=== PATIENT | female | born 1955 | race Caucasian/White ===

== ENCOUNTER → 2016-06-24 | Outpatient (CLI) | payer OTHER ==
[~2016-06-24] MED LIST: ARICEPT 5 MG TAB5 MG PO; ATIVAN1 MG PO; CYMBALTA60 MG PO; DEPAKOTE 250MG250 MG PO; ENTOCORT EC3 MG PO; IBUPROFEN 600600 M1 PO; LIDODERM 5%1 PATC1 TOP; MAPAP500 MG PO; NAMENDA 10 MG T10 MG PO; OLANZAPINE10 MG PO; OLANZAPINE5 MG PO; PRILOSEC20 MG PO; REMERON15 MG PO; RIFAMPIN 300 M300 M1 PO; TEARS NATURALE1 EACH OPHTHALMIC; TRAMADOL 50 MG50 MG PO; TYLENOL EXTRA500 MG PO; VANCOMYCIN750 MG/250 IV; VITAMIN B122500 MCG PO; ZYPREXA 10 MG T10 MG PO; ZYPREXA10 MG/VIAL IM; ZYVOX600 MG PO
== END ==
LOC: RAD 13:15
DX: M25.572 Pain in left ankle and joints of left foot (principal); M25.522 Pain in left elbow; Z96.622 Presence of left artificial elbow joint

== ENCOUNTER 2016-07-03 10:27 | Emergency (ER) | payer OTHER ==
[~2016-07-03] VITALS: Ht 167.6 cm; Wt 70.8 kg
--- NOTE | ~2016-07-03 | EKG ---
[address] [place] [address] ELECTROCARDIOGRAM REPORT Name: MELA RAJPUT Room #: DEP [facility]#: [id number] Admission: 07/03/16 Attend Phys: Discharge: 07/03/16 Date of : 51 Report #: [id number] THIS REPORT FOR: //name// [facility] ED Test Date: 2016-07-03 Test Time: 10:46:04 Pat Name: MELA RAJPUT Department: Room: Gender: F Respiratory Therapy Assistant: MZOOK : 1955 Requested By: Kel Lopez Order Number: [id number] MD: Niko Vargas Measurements Intervals [place] Rate: 94 P: -17 FL: 153 QRS: -52 QRSD: 88 T: 25 QT: 355 QTc: 444 Interpretive Statements Sinus rhythm Inferior infarct, old Poor R wave progression Compared to ECG 05/04/2016 11:13:23 No significant change was found Electronically Signed On 07-04-2016 11:45:30 CDT by Niko Vargas [email or web address] <ELECTRONICALLY SIGNED> By: Niko Vargas MD, [facility] 07/04/16 1145 [id number] Niko Vargas MD, [facility] /EPI
[2016-07-03 11:11] LABS: URINE BILIRUBIN NEGATIVE (Negative); URINE BLOOD NEGATIVE (Negative); URINE COLOR YELLOW; URINE GLUCOSE-RANDOM* NEGATIVE (Negative); URINE KETONES NEGATIVE (Negative); URINE LEUKOCYTES-REFLEX NEGATIVE (Negative); URINE PROTEIN (DIPSTICK) NEGATIVE (Negative); URINE UROBILINOGEN 0.2 E.U./dl (0.2-1.0)
[2016-07-03 11:14] LABS: HEMATOCRIT 35.1 % (37.0-47.0); HEMOGLOBIN 11.9 gm/dL (12.0-15.0); MCV 88.2 fL (80.0-100.0); PLATELET COUNT 123 thou/uL (150-400); RBC 3.97 mil/uL (4.20-5.00); WBC 9.2 thou/uL (4.0-11.0)
[2016-07-03 11:23] LABS: MANUAL DIFF YES
[2016-07-03 11:44] LABS: ALBUMIN 2.5 g/dL (3.4-5.0); ALKALINE PHOSPHATASE 48 U/L (46-116); ANION GAP 8 mmol/L (7-16); BUN 9 mg/dL (7-18); CALCIUM 8.9 mg/dL (8.5-10.1); CHLORIDE 104 mmol/L (98-107); CK-MB MASS 0.5 ng/mL (<0.5-3.6); CO2 27 mmol/L (21-32); CREATININE 1.1 mg/dL (0.6-1.0); GLUCOSE 85 mg/dL (74-106); MAGNESIUM 1.7 mg/dL (1.8-2.4); NT-PRO BRAIN NAT PEPTIDE 230 pg/mL (<300); POTASSIUM 3.9 mmol/L (3.5-5.1); SGOT 48 U/L (15-37); SGPT 26 U/L (30-65); SODIUM 139 mmol/L (136-145); TOTAL BILIRUBIN 0.3 mg/dL (<0.1-1.0); TOTAL PROTEIN 7.5 g/dL (6.4-8.2); TROPONIN-I < 0.04 ng/mL (<0.04-0.07)
[2016-07-03 11:51] LABS: TOTAL CELL COUNT 100
== END 2016-07-03 13:52 | disposition home or self-care (01) ==
LOC: ER 10:27
PROVIDERS: Emergency Medicine
DX: F03.90 Unspecified dementia, unspecified severity, without behavioral disturbance, psychotic disturbance, mood disturbance, and anxiety (principal); R41.0 Disorientation, unspecified; F31.9 Bipolar disorder, unspecified; Z86.19 Personal history of other infectious and parasitic diseases; Z96.662 Presence of left artificial ankle joint; Z96.622 Presence of left artificial elbow joint

== ENCOUNTER → 2018-05-29 | Outpatient (CLI) | payer OTHER | LOC: RAD 01:37 | DX: Z12.31 Encounter for screening mammogram for malignant neoplasm of breast (principal) ==

== ENCOUNTER 2020-06-29 23:53 | Inpatient (IN) | payer OTHER ==
[~2020-06-29] VITALS: Ht 167.6 cm; Wt 59.1 kg
[~2020-06-29 23:53] MED LIST changes: +REMERON15 M2 PO; -REMERON15 MG PO
[2020-06-29 23:55] VITALS: BP 127/79
[2020-06-30] VITALS (7 sets, daily range): BP systolic 122–141; BP diastolic 59–81
[2020-06-30 00:26] LABS: ABSOLUTE NEUTROPHILS 3.7 thou/uL (1.4-8.2); BASOPHILS 1.2 % (0.0-2.0); EOSINOPHILS 2.3 % (0.0-3.0); HEMATOCRIT 27.8 % (37.0-47.0); MCH 24.5 pg (26.0-34.0); MCHC 32.4 g/dL (28.0-37.0); MCV 75.9 fL (80.0-100.0); PLATELET COUNT 330 thou/uL (150-400); POLYS 38.5 % (36.0-66.0); RBC 3.67 mil/uL (4.20-5.00); RDW 17.7 % (10.5-14.5); WBC 9.6 thou/uL (4.0-11.0)
[2020-06-30 00:45] LABS: ANION GAP 14 mmol/L (7-16); BUN 13 mg/dL (7-18); CALCIUM 7.7 mg/dL (8.5-10.1); CHLORIDE 96 mmol/L (98-107); CO2 20 mmol/L (21-32); CREATININE 1.5 mg/dL (0.6-1.0); GLUCOSE 107 mg/dL (74-106); SGOT 28 U/L (15-37); SGPT 16 U/L (30-65); SODIUM 130 mmol/L (136-145); TOTAL BILIRUBIN 0.2 mg/dL (0.2-1.0); TOTAL PROTEIN 6.6 g/dL (6.4-8.2); TROPONIN-I <0.06 ng/mL (<0.06)
[2020-06-30 00:45] LABS: URINE BILIRUBIN NEGATIVE (Negative); URINE BLOOD NEGATIVE (Negative); URINE CLARITY CLEAR; URINE COLOR YELLOW; URINE GLUCOSE-RANDOM* NEGATIVE (Negative); URINE KETONES NEGATIVE (Negative); URINE LEUKOCYTES-REFLEX TRACE (Negative); URINE NITRITE-REFLEX NEGATIVE (Negative); URINE PROTEIN (DIPSTICK) NEGATIVE (Negative); URINE SPECIFIC GRAVITY <= 1.005 (1.005-1.035); URINE UROBILINOGEN 0.2 E.U./dl (0.2-1.0)
[2020-06-30 00:46] LABS: POTASSIUM 2.4 mmol/L (3.5-5.1)
--- NOTE | 2020-06-30 04:09 | NUR ---
PT ADMITTED FROM ER FROM INDEPENDENT LIVING AT [facility] FOR ALTERED MENTAL STATUS AND LOW MAG, NS. POTASSIUM. SHE IS CONFUSED TO YEAR, TIME AND PLACE. SHE HAS DEMENTIA. SHE WAS EXPLAINED FALL PRECAUTIONS. AND CALL LIGHT. BED ALARM IS ON. POTASSIUM INFUSING LEFT FA WITH NS . NO S/S DISTRESS PRESENTLY. CARE PLAN INITIATED.
--- NOTE | 2020-06-30 07:33 | NUR ---
PT C/O NAUSEA. ZOFRAN GIVEN X1. BENADRYL GIVEN TO HELP HER SLEEP X1. NOTIFIED LIGHT OIL OPERATOR TO HAVE PT'S LABS DRAW AROUND 0730 OR 0800 DUE LYTES REPLACEMENT JUST COMPLETED. PT FORGETFUL AND NONCOMPLIANT WITH CALLING NS PRIOR TO GETTING OOB. BED ALARM IS ON. DAY SHIFT NOTIFIED.
[2020-06-30 08:04] LABS: CALCIUM 8.1 mg/dL (8.5-10.1); CREATININE 1.3 mg/dL (0.6-1.0); MAGNESIUM 2.1 mg/dL (1.8-2.4); POTASSIUM 3.1 mmol/L (3.5-5.1)
[2020-06-30] MEDS ORDERED: CYMBALTA30 MG PO (11:40)
[2020-06-30] MEDS ORDERED: LISINOPRIL5 MG PO (11:40)
[2020-06-30] MEDS ORDERED: NORVASC5 MG PO (11:40)
--- NOTE | 2020-06-30 15:04 | NUR ---
AWAITING FOLLOW UP WITH CASE MANAGEMENT REGARDING PT DC. PT UPDATED ON PLAN OF CARE.
--- NOTE | 2020-06-30 19:40 | NUR ---
PT CONFUSED. HAS DEMENTIA AND POSSIBLE ETOH W/D ACCORDING TO DAY SHIFT NURSE. BED ALARM ON. CHECKING PT FREQUENTLY. SIDE RILS UP X3. SR ON MONITOR. VSS. WILL CONTINUE TO MONITOR PT FOR CHANGES.
[2020-07-01 04:37] VITALS: BP 142/80
--- NOTE | 2020-07-01 05:13 | NUR ---
PT IS SLEEPING PRESENTLY. VSS AFEBRILE. SAT 100% ON RA. HRR . NSR ON MONITOR. NO S/S DT'S PRESENTLY. SHE STILL REMAINS CONFUSED AND ATTEMPTS TO GET OOB WITHOUT HELP. BED ALARM ON. SHE IS FORGETFUL.
[2020-07-01 05:20] LABS: HEMATOCRIT 27.9 % (37.0-47.0); HEMOGLOBIN 8.6 gm/dL (12.0-15.0); MCH 24.2 pg (26.0-34.0); MCV 78.2 fL (80.0-100.0); RBC 3.57 mil/uL (4.20-5.00); RDW 17.9 % (10.5-14.5); WBC 5.7 thou/uL (4.0-11.0)
[2020-07-01 05:35] LABS: CALCIUM 8.1 mg/dL (8.5-10.1)
--- NOTE | 2020-07-01 12:43 | NUR ---
CARE ASSUMED AT 0700, PT ALERT AND ORIENTED X1, CONFUSED AND DEMENTED. PT DENIES ANY NAUSEA AND VOMITTING. IMPULSIVE AT TIMES BUT REDIRECTABLE. FALL PRECAUTION IN PLACE. WILL CONTINUE TO MONITOR.
[2020-07-01 15:45] VITALS: BP 152/86
--- NOTE | 2020-07-01 16:36 | NUR ---
INITIAL ASSESSMENT: Received consult for discharge planning. MAX reviewed chart and spoke with nursing and attending physician. Pt was admitted from [facility] due to AMS/hypokalemia. Pt with hx of ETOH use. Pt is progressing towards goals for discharge. Discharge is anticipated for tomorrow. MAX met with pt at bedside. Pt is alert/orientated to self and place. Pt states she wants to go home. MAX explained that she is not ready for discharge today. MAX spoke with pt's brother, Donovan, via phone. Introduced role of MAX. Pt is retired from the [employer] and has been living in for several years. Pt's family live in and are supportive and involved in pt's care. MAX discussed discharge and recommendation for HH services. Pt's brother is agreeable. Options provided. No preference voiced. MAX explained that HH will assess pt in her apt and follow up with Donovan if they feel pt needs additional services or higher level of care. Pt's brother does not think pt has been drinking, as he does not know how she would be getting it. MAX faxed HH referral to [facility], who are onsite at [facility]. MAX notified HH liaison, Esthela, of new referral. MAX is following to assist as needed with discharge planning.
--- NOTE | 2020-07-01 17:42 | NUR ---
PT REMOVED IV. NEW IV ESTABLISHED IN LEFT UPPER ARM
[2020-07-01 19:37] VITALS: BP 159/71
--- NOTE | 2020-07-01 21:14 | NUR ---
UPON ARRIVAL TO SHIFT PT REPEATEDLY AND IMPULSIVELY GETTING OOB. PT PULLING ON IV. IV MED DISCONNECTED TO PREVENT FALL AND PULLING OUT IV. PT VERY UNSTEADY AND WALKING AROUND ROOM HOLDING ONTO FURNITURE. PT WALKED OUT TO NURSES STATION AND DOWN PORTILLO. . PT YELLING SHE WAS AT [facility] AND WHAT WERE ALL THESE PEOPLE DOING IN HER HOUSE. PT NOT ABLE TO BE REDIRECTED OR DISTRACTED. PROVIDER CALLED. AND PRN ORDER PROVIDED. PT APPROXIMATELY 30 MINUTES LATER ABLE TO BE REDIRECTED TO REST IN BED. PT REQUESTED HS MEDS. INITIALLY PT REFUSED MEDS STATING SHE WOULD TAKE THEM AT 2. PT REORIENTED TO TIME AND TOOK HS MEDS. BED ALARM ON.
--- NOTE | 2020-07-02 00:59 | NUR ---
PT AWAKENED TO USE RESTROOM. IMPULSIVELY OOB. ALARM SOUNDING. PT UNSTEADY, NOTED TREMORS AND DIAPHORETIC, HR 150. . IVF RESTARTED AND PRN PER CIWA PROVIDED. ALARM ON.
[2020-07-02 04:53] VITALS: BP 160/102
--- NOTE | 2020-07-02 05:06 | NUR ---
PT AWAKENED BY CORN SHUCKER. PT WANTED TO GET OOB TO USE RESTROOM BUT WAS ABLE TO WAIT FOR STAFF TO ASSIST. BP ELEVATED, PT HAS TREMORS, DIAPHORETIC, ANXOUS, AGITATED. PT ASKING ABOUT HER ROOM AND CAT IVY LOCATION. CIWA SCORE 9 PRN PROVIDED.
[2020-07-02 05:18] LABS: HEMATOCRIT 24.4 % (37.0-47.0); HEMOGLOBIN 7.7 gm/dL (12.0-15.0); MCH 24.7 pg (26.0-34.0); MCHC 31.7 g/dL (28.0-37.0); MCV 77.9 fL (80.0-100.0); RBC 3.13 mil/uL (4.20-5.00); RDW 18.1 % (10.5-14.5); WBC 4.8 thou/uL (4.0-11.0)
[2020-07-02 05:38] LABS: CALCIUM 8.1 mg/dL (8.5-10.1); MAGNESIUM 1.6 mg/dL (1.8-2.4); POTASSIUM 4.4 mmol/L (3.5-5.1)
[2020-07-02 07:15] VITALS: BP 146/104
[2020-07-02 08:30] VITALS: BP 166/93
[2020-07-02 14:32] LABS: AMP/METHAMP Negative (Negative); BARBITURATES Negative (Negative); BENZODIAZEPINES Negative (Negative); COCAINE Negative (Negative); METHADONE Negative (Negative); OPIATES Negative (Negative); PCP Negative (Negative)
--- NOTE | 2020-07-02 15:01 | NUR ---
MAX reviewed chart and spoke with nursing and attending physician. Pt is progressing towards goals for discharge. Discharge back to [facility] with [facility] is anticipated for tomorrow. MAX spoke with Esthela at [facility] , who states they are able to accept pt on service. MAX spoke with pt's brother, Donovan, via phone to provide update. Donovan is aware and agreeable with . Pt currently in ETOH withdrawal protocol. No alcohol level ordered upon admission. MAX placed call to [facility] and spoke with Debby to notify of pt's discharge. Debby requests pt's clinical/therapy info to be faxed for review. MAX faxed requested info. [facility] is able to provide transportation tomorrow. MAX is following to assist as needed with discharge planning. KNAPP LENA-- [facility]--
[2020-07-02 15:06] VITALS: BP 166/93
--- NOTE | 2020-07-02 17:34 | NUR ---
RN ASSUMED PT'S CARE AT 0700AM, PT KNOWS HER NAME AND DAY, BUT PT IS IMPULSIVE, SHE GETS OUT OF HER BED BY HER SELF AND PUT OUT HER PIV 2 TIMES , SHE IS HIGH FALL RISK, RN HAS CALLED TO REPORT, PT HAS ATIVAN 2MG IV Q2-3 HR PER CIWA ASSESSMENT SCORES 10-12, BUT DONOT WORK WELL, NEW ORDER BOTH WRIST SOFT RESTRAINTS APPLY AT 1700PM, PT'S VS ARE STABLE BY THIS TIME, RN HAS UPDATED PT'S INFORMATION TO PT'S BROTHER.WE WILL KEEP EYE ON THE PT.
[2020-07-02 20:03] VITALS: BP 188/116
[2020-07-03 04:29] VITALS: BP 137/91
[2020-07-03 05:09] LABS: HEMATOCRIT 27.4 % (37.0-47.0); HEMOGLOBIN 8.5 gm/dL (12.0-15.0); MCH 24.2 pg (26.0-34.0); MCV 77.9 fL (80.0-100.0); RBC 3.52 mil/uL (4.20-5.00); WBC 6.3 thou/uL (4.0-11.0)
[2020-07-03 05:43] LABS: CALCIUM 8.7 mg/dL (8.5-10.1); MAGNESIUM 1.7 mg/dL (1.8-2.4); TOTAL BILIRUBIN 0.3 mg/dL (0.2-1.0); TOTAL PROTEIN 6.7 g/dL (6.4-8.2)
--- NOTE | 2020-07-03 06:21 | NUR ---
PT STILL VERY IMPULSIVE WITH LORAZEPAM GIVEN. PT HR IN 120-130 AND VERY RESTLESS. RECEIVED ORDERS FOR 1X HALIDOL AND PT FINALLY GOT SOME REST AND HR WENT BELOW 100. RESTRAINTS STILL IN USE. PT DISLODGED IV IN RIGHT HAND. REPLACED WITH 22GA IN LEFT UNDERSIDE OF FOREARM. FOLLOWING POC.
[2020-07-03 07:28] VITALS: BP 150/107
--- NOTE | 2020-07-03 13:43 | NUR ---
Per phys patient would benefit from post acute care. Patient out of restraints since 10:00 this am. Spoke with Brother who is currently out of town. Discussed post acute care. Son questioning if patient was consuming ETOH again. He reports [facility] at [facility]. Due to Covid he has not been able to visit with patient. Brother with no prefence reports she has been at [facility] in past. Plan referral to [facility] facility. Requested COVID test. Requested [facility] call brother for medical update. Brother concerned patient has cat at apt. he plans to call [facility]. SP with Debby at [facility] to alert discussion of post acute care. Debby to f/u regarding care of cat.
--- NOTE | 2020-07-03 13:54 | NUR ---
FAXED SNF REFERRAL TO [facility]. WILL CONFIRM WITH HUMZA/LIAISON IF SHE RECEIVED DOCUMENTS AND BED AVAILABILITY. [facility] P [phone]; FAX [phone]
[2020-07-03 15:36] VITALS: BP 158/106
--- NOTE | 2020-07-03 18:19 | NUR ---
RN ASSUMED PT'S CARE AT 0700AM, PT KNOWS HER NAME , BUT PT IS CONFUSED AND SHE CANNOT FOLLOW COMMANDS, PT 'S AGITATION AND I MPULSIVE CAN CONTROL MOST OF TIME, SO PT'S SOFT RESTRAINTS STOPPED AT 1000AM, PT 'S CIWA ASSESSMENT SHOWS 10-11, PT IS HIGH FALL RISK, PT NEEDS HELP MEALS AND BSC. RN HAS COVID TEST DONE ABOUT 1330PM.
[2020-07-03 19:21] VITALS: BP 138/97
[2020-07-04 04:47] VITALS: BP 144/94
--- NOTE | 2020-07-04 05:50 | NUR ---
PROGRESS PT SEDATED BUT AROUSABLE. CALM, PLEASANT, AND COOPERATIVE. VSS TELEMETRY INTACT READING ST WITH RATES IN THE 90'S TO LOW 100'S. PT WOKE FOR REASSESSMENT AND MEDS BUT SLEPT UNTIL AM VOIDED X1 NO EPISODES OF INCONTINENCE. ONLY TRIED TO GET UP ONCE ON HER OWN. POOR INTAKE NOTED DINNER TRAY WAS UNTOUCHED, PT TOOK A FEW SIPS OF ORANGE JUICE AND SOME SODA BUT REFUSED A SNACK. POSSIBLE DISCHARGE TO SNF TODAY.
[2020-07-04 07:11] VITALS: BP 151/92
--- NOTE | 2020-07-04 12:17 | NUR ---
MAX reviewed chart and spoke with nursing and attending physician. Pt has remained out of restraints since yesterday morning around 1000. Pt's COVID test is negative. MAX faxed clinical updates and [facility] test results [facility] for [facility]. Notified Tamika liaison. Clinical team reviewing referral. MAX left voice message for pt's brother, Donovan, to provide update. Pt is ready for discharge. MAX is following to assist as needed with discharge planning.
[2020-07-04] MEDS ORDERED: VITAMIN B-1100 M2 PO (13:20)
[2020-07-04] MEDS ORDERED: MAGNESIUM400 MG PO (13:20)
[2020-07-04] MEDS ORDERED: DIAZEPAM 5 MG5 M1 PO (13:20)
[2020-07-04] MEDS ORDERED: PEPCID20 MG PO (13:20)
[2020-07-04] MEDS ORDERED: PRENATAL PO (13:20)
[2020-07-04] MEDS ORDERED: SEROQUEL 25 MG25 M1 PO (13:20)
[2020-07-04 15:19] VITALS: BP 137/93
--- NOTE | 2020-07-04 18:45 | NUR ---
ASSUMED PATIENT CARE AT 0700. ALERT. VERY GOOD APPETITE. UPDATE WITH PATIENTS SISTER. SISTER CONCERNNED PATIENT HAS BLEEDING ISSUES THAT RN DIDNT SEE ANY BLEEDING IN THREE DAYS HG 12.8. NOTIFIED DR FREEMAN UPDATE TO SISTER. PROGRESSING TOWARDS POC GOALS.
--- NOTE | 2020-07-04 18:50 | NUR ---
ASSUMED PATIENT CARE AT 0700. ALERT. CONFUSED AND IMPULSIVE. CIW X8. MEDS GIVEN FOR ANXIOUS. SLOWLY TOWARDS POC GOALS.
[2020-07-04 22:01] VITALS: BP 151/96
[2020-07-04 23:00] VITALS: BP 151/96
--- NOTE | 2020-07-05 01:15 | NUR ---
FALL PT BEING VERY IMPULSIVE THIS EVENING. FREQUENTLY GETTING OUT OF BED AND SETTING OFF THE BED ALARM. PT GOT OOB AT 2155 TO GO TO BATHROOM VERY IMPATIENT UNABLE TO GET GAIT BELT ON. I ESCORTED HER TO BATHROOM SHE HAD A STEADY GAIT. PT SAT ON TOLIET AND LEANED TO THE LEFT AND SHE SLIPPED OFF THE TOLIET SEAT ONTO THE FLOOR. DENIES INJURY OR PAIN VSS. MATT WILLINGHAM NOTIFIED NO NEW ORDERS RECEIVED. RAE RAJPUT PT'S BROTHER CONTACTED VIA PHONE AND NOTIFIED OF FALL. POST FALL ASSESSMENT COMPLETED, CARE PLAN UPDATED, VERGE REPORT AND HUDDLE FORM COMPLETED WITH ASSISTANCE OF GEOLOGICAL AIDE MARY JANE VARMA.
[2020-07-05 07:56] VITALS: BP 137/82
== END 2020-07-05 11:16 | DRG 640 ==
LOC: ER 23:53 → EROBS 06-30 01:33 → 3W 06-30 01:33
PROVIDERS: Emergency Medicine; Internal Medicine; Nurse Practitioner; ADMIT Hospitalist; ATTEND Hospitalist
DX: E87.6 Hypokalemia (principal); G93.41 Metabolic encephalopathy; F10.139 Alcohol abuse with withdrawal, unspecified; E87.1 Hypo-osmolality and hyponatremia; E83.42 Hypomagnesemia; F31.9 Bipolar disorder, unspecified; D64.9 Anemia, unspecified; B19.20 Unspecified viral hepatitis C without hepatic coma; Y90.9 Presence of alcohol in blood, level not specified; F03.90 Unspecified dementia, unspecified severity, without behavioral disturbance, psychotic disturbance, mood disturbance, and anxiety; R07.89 Other chest pain; Z96.662 Presence of left artificial ankle joint; Z96.622 Presence of left artificial elbow joint; Z79.899 Other long term (current) drug therapy; Z87.891 Personal history of nicotine dependence; Z20.822 Contact with and (suspected) exposure to COVID-19
CPT/HCPCS: 10879

== ENCOUNTER 2020-10-23 16:48 | Inpatient (IN) | payer OTHER ==
[~2020-10-23] VITALS: Ht 167.6 cm; Wt 54.4 kg
[~2020-10-23 16:48] MED LIST changes: +CYMBALTA30 MG PO; +DIAZEPAM 5 MG5 M1 PO; +LISINOPRIL5 MG PO; +MAGNESIUM400 MG PO; +NORVASC5 MG PO; +PEPCID20 MG PO; +PRENATAL PO; +SEROQUEL 25 MG25 M1 PO; +VITAMIN B-1100 M2 PO
[2020-10-23 17:08] VITALS: BP 131/72
[2020-10-23 18:20] LABS: ANION GAP 17 mmol/L (7-16); BUN 13 mg/dL (7-18); CALCIUM 9.2 mg/dL (8.5-10.1); CHLORIDE 95 mmol/L (98-107); CO2 18 mmol/L (21-32); CREATININE 1.5 mg/dL (0.6-1.0); GLUCOSE 116 mg/dL (74-106); POTASSIUM 3.3 mmol/L (3.5-5.1); SODIUM 130 mmol/L (136-145)
[2020-10-23 18:30] LABS: ALBUMIN 3.1 g/dL (3.4-5.0); SGOT 57 U/L (15-37); SGPT 31 U/L (14-59); TOTAL BILIRUBIN 0.4 mg/dL (0.2-1.0); TOTAL PROTEIN 7.5 g/dL (6.4-8.2); TROPONIN-I <0.06 ng/mL (<0.06)
[2020-10-23 18:47] LABS: HEMATOCRIT 36.3 % (37.0-47.0); HEMOGLOBIN 11.5 gm/dL (12.0-15.0); MCH 26.2 pg (26.0-34.0); MCHC 31.8 g/dL (28.0-37.0); MCV 82.6 fL (80.0-100.0); PLATELET COUNT 627 thou/uL (150-400); RBC 4.39 mil/uL (4.20-5.00); RDW 27.2 % (10.5-14.5); WBC 13.8 thou/uL (4.0-11.0)
[2020-10-23 19:58] LABS: ABSOLUTE NEUTROPHILS 10.6 thou/uL (1.4-8.2)
[2020-10-23 19:59] LABS: ANISOCYTOSIS 3+
[2020-10-23 23:25] LABS: URINE BILIRUBIN NEGATIVE (Negative); URINE BLOOD NEGATIVE (Negative); URINE CLARITY CLEAR; URINE COLOR YELLOW; URINE GLUCOSE-RANDOM* NEGATIVE (Negative); URINE KETONES NEGATIVE (Negative); URINE NITRITE-REFLEX NEGATIVE (Negative); URINE PROTEIN (DIPSTICK) NEGATIVE (Negative); URINE SPECIFIC GRAVITY <= 1.005 (1.005-1.035); URINE UROBILINOGEN 0.2 E.U./dl (0.2-1.0)
[2020-10-23 23:26] LABS: URINE LEUKOCYTES-REFLEX 1+ (Negative)
[2020-10-24 00:06] LABS: CASTS None Seen /LPF (None Seen); CRYSTALS None Seen /LPF (None Seen); MUCUS 0-3 Light strn/LPF (None Seen); SQUAMOUS 0-3 Few /LPF (0-3); URINE RBC 1-2 Rare /HPF (NONE SEEN); URINE WBC-REFLEX 6-15 Few /HPF (0-5)
[2020-10-24 02:07] VITALS: BP 109/62; BP 131/82
--- NOTE | 2020-10-24 05:34 | NUR ---
new admission for dizziness and fall on her apartment. patient aox3 confused and forgetful. no episode of synopy or dizzyness this shift. patient contient this shift. pain controlled this shift. fall precaution in place. patient in bed asleep at this time breathing regular and unlaboured.
[2020-10-24 06:12] LABS: HEMATOCRIT 32.3 % (37.0-47.0); HEMOGLOBIN 10.3 gm/dL (12.0-15.0); MCH 26.3 pg (26.0-34.0); MCHC 31.9 g/dL (28.0-37.0); MCV 82.3 fL (80.0-100.0); RBC 3.93 mil/uL (4.20-5.00); RDW 26.7 % (10.5-14.5); WBC 11.4 thou/uL (4.0-11.0)
[2020-10-24 06:27] LABS: CALCIUM 8.2 mg/dL (8.5-10.1); POTASSIUM 3.3 mmol/L (3.5-5.1)
--- NOTE | 2020-10-24 07:18 | EKG ---
[address] [place] [address] ELECTROCARDIOGRAM REPORT Name: MELA RAJPUT Room #: 461-P ADM IN ..#: [id number] Admission: 10/24/20 Attend Phys: Prem Haji MD Discharge: Date of : 51 Report #: [id number] [facility] ED Test Date: 2020-10-23 Test Time: 18:13:33 Pat Name: MELA RAJPUT Department: Room: 46 Gender: F Pst Supervisor: tessa : 1955 Requested By: Willam Van Order Number: [id number] MD: Isak Perez Measurements Intervals [place] Rate: 84 P: 33 MI: 139 QRS: -60 QRSD: 93 T: 4 QT: 363 QTc: 430 Interpretive Statements Sinus rhythm Probable left atrial enlargement Anterolateral infarct, old Compared to ECG 07/03/2016 10:46:04 Poor R-wave progression no longer present Myocardial infarct finding still present Electronically Signed On 10-24-2020 7:18:07 CDT by Isak Perez [email or web address] <ELECTRONICALLY SIGNED> By: Isak Perez MD, [facility] 10/24/20717 12 12 Isak Perez MD, [facility] /EPI
--- NOTE | 2020-10-24 08:30 | 2DMMODE ---
[facility] [place] [address] 2 D/M-MODE ECHOCARDIOGRAM Name: MELA RAJPUT Room #: 461-P ADM IN ..#: [id number] Admission: 10/24/20 Attend Phys: Prem Haji MD Discharge: Date of : 51 Report #: [id number] THIS REPORT FOR: cc: ADAIR - Alba family physician/PCP ADAIR - [facility] family physician/PCP Isak Perez MD [facility] ~ APPROVED REPORT Study performed: 10/24/2020 07:51:36 EXAM: Comprehensive 2D, Doppler, and color-flow Echocardiogram Patient Location: Bedside Room #: 461 Status: routine BSA: 1.61 HR: 85 bpm BP: 109/62 mmHg Rhythm: NSR Other Information Study Quality: Adequate Indications Syncope. 2D Dimensions RVDd: 27.65 mm IVSd: 10.13 (7-11mm) LVOT Diam: 19.85 (18-24mm) LVDd: 45.50 mm PWd: 8.80 (7-11mm) Ascending Ao: 31.39 (22-36mm) LVDs: 29.36 (25-40mm) Left Atrium: 31.14 (27-40mm) Aortic Root: 31.74 mm Volumes Left Atrial Volume (Systole) Single Plane 4CH: 29.39 mL Single Plane 2CH: 31.24 mL LA ESV Index: 20.00 mL/m2 Aortic Valve AoV Peak Zac.: 1.80 m/s AO Peak Gr.: 12.90 mmHg LVOT Max P.99 mmHg LVOT Max V: 1.50 m/s URIEL Vmax: 2.58 cm2 [facility] [address] [address] 2 D/M-MODE ECHOCARDIOGRAM Name: MELA RAJPUT Room #: 461-P [facility] IN [facility]#: [id number] Admission: 10/24/20 Attend Phys: Prem Haji MD Discharge: Date of : 51 Report #: [id number] Mitral Valve E/A Ratio: 0.7 MV Decel. Time: 259.11 ms MV E Max Zac.: 0.68 m/s MV A Zac.: 0.91 m/s MV PHT: 75.14 ms IVRT: 62.28 ms Pulmonary Valve PV Peak Zac.: 0.89 m/s PV Peak Gr.: 3.13 mmHg Pulmonary Vein P Vein S: 0.85 m/s P Vein A: 0.37 m/s P Vein D: 0.46 m/s P Vein A Dur.: 90.0 msec P Vein S/D Ratio: 1.85 Tricuspid Valve TR Peak Zac.: 2.57 m/s RAP Estimate: 5.00 mmHg TR Peak Gr.: 26.34 mmHg PA Pressure: 31.00 mmHg Left Ventricle The left ventricle is normal size. There is normal LV segmental wall motion. Mild basal septal hypertrophy is present. Left ventricular systolic function is normal. LVEF is 60-65%. Mild diastolic dysfunction is present (impaired relaxation pattern). Right Ventricle The right ventricle is normal size. The right ventricular systolic function is normal. Atria The left atrium size is normal. The right atrium size is normal. Aortic Valve Aortic valve is trileaflet; mildly thickened and calcified. No aortic regurgitation is present. There is no aortic valvular stenosis. Mitral Valve The mitral valve is normal in structure. Mild mitral annular calcification. There is no mitral valve regurgitation noted. No evidence of mitral valve stenosis. [facility] [address] [place] [address] 2 D/M-MODE ECHOCARDIOGRAM Name: MELA RAJPUT Room #: 461-P [facility] IN ..#: [id number] Admission: 10/24/20 Attend Phys: Prem Haji MD Discharge: Date of : 51 Report #: [id number] Tricuspid Valve The tricuspid valve is normal in structure. Trace to mild tricuspid regurgitation. Estimated PAP is 31mmHg. Pulmonic Valve The pulmonary valve is normal in structure. Trace pulmonic regurgitation. Great Vessels The aortic root is normal in size. The ascending aorta is normal in size. IVC is normal in size and collapses >50% with inspiration. Pericardium There is no pericardial effusion. <Conclusion> Normal left ventricular size with mild basal hypertrophy Ejection fraction 6065 % Normal right ventricular size/function Normal atrial size Color-flow Doppler study was performed of the aortic/mitral/tricuspid/pulmonary valve Aortic valve mildly calcified, no stenosis detected Mild mitral annular calcification Mild tricuspid valve insufficiency Pulmonary systolic pressure estimated 31 mmHg No pericardial effusion Normal aortic root size <ELECTRONICALLY SIGNED> By: Isak Perez MD, [facility]ACC 10/24/20828 8 8 Isak Perez MD, FACC /INF
[2020-10-24 08:35] VITALS: BP 123/76
[2020-10-24 13:30] VITALS: BP 104/66
--- NOTE | 2020-10-24 17:23 | NUR ---
met with patient asked if [facility] and she states "well where did they [facility] me this time?" "I know im at a hospital." Patient can tell me she lives at [facility] [place] [facility]. She uses no assistvie device. She reports she adminiters her own medications. Patient has a cat and hopefull to dc soon. [facility] following
--- NOTE | 2020-10-24 17:39 | NUR ---
ASSUMED CARE OF PATIENT AT SHIFT CHANGE. ASSESSMENT CHARTED. MEDICATIONS ADMINISTERED PER EMAR. VSS. PATIENT IS A&OX3 BUT CAN BE VERY FORGETFUL AND CONFUSED. PATIENT HAS BEEN C/O PAIN NOT RELIEVED BY TYLENOL. TRAMADOL ORDERED AND SEEMED TO PROVIDE SOME PARTIAL PAIN RELIEF. PATIENT WOULD GET UPSET ABOUT PAIN AND NOT HAVING SPOKE TO A PROVIDER. PROVIDER DID SPEAK WITH PATIENT AND ORDERED AN XRAY OF SPINE. KESHIA, DPOA UPDATED. FALL PRECAIUTIONS IN PLACE ALTHOUGH PATIENT NOT COMPLIANT. WILL CONTINUE TO MONITOR AND FOLLOW PLAN OF CARE
[2020-10-24 19:48] VITALS: BP 131/80
[2020-10-25] MEDS ORDERED: REMERON15 M2 PO (03:06)
[2020-10-25] MEDS ORDERED: ARICEPT10 M1 PO (03:06)
[2020-10-25] MEDS ORDERED: DIAZEPAM 5 MG5 M1 PO (03:07)
[2020-10-25] MEDS ORDERED: DULOXETINE HCL60 MG PO (03:08)
[2020-10-25 07:40] VITALS: BP 123/80
[2020-10-25 15:43] VITALS: BP 148/76
--- NOTE | 2020-10-25 19:52 | NUR ---
ASSUMED CARE OF PATIENT AT SHIFT CHANGE. ASSESSMENT CHARTED. MEDICATIONS ADMINISTERED PER EMAR. VSS. PATIENT REMAINS CONFUSED AND FORGETFUL THIS SHIFT. STILL NON-COMPLIANT W FALL PRECAUTIONS. PATIENT REQUESTED LIDOCAINE PATCH; REACHED OUT TO PROVIDER W NO RESPONSE. STILL C/O PAIN ON LOWER BACK; GIVEN TRAMADOL FOR PAIN RELIEF. NOT REFUSING FLUIDS ANYMORE AFTER EDUCATION. UPDATED KESHIA, DPOA. FALL PRECAUTIONS REMAIN IN PLACE. ENDORSED TO NOC RN
[2020-10-25 20:22] VITALS: BP 116/78
--- NOTE | 2020-10-26 05:37 | NUR ---
Assumed pt care at 1900. A/OX2-3,very forgetful,confused and impulsive at times. VSS.Denies pain on assessment. Up with SBA to bathroom. Continent of B&B. IVF infusing via LFA w/o any problems. Fall precauitons in place,frequent checks on pt.
[2020-10-26 06:18] LABS: HEMATOCRIT 28.4 % (37.0-47.0); HEMOGLOBIN 9.4 gm/dL (12.0-15.0); MCH 27.2 pg (26.0-34.0); MCHC 33.2 g/dL (28.0-37.0); MCV 82.1 fL (80.0-100.0); RBC 3.46 mil/uL (4.20-5.00); RDW 26.7 % (10.5-14.5); WBC 6.6 thou/uL (4.0-11.0)
[2020-10-26 06:40] LABS: CREATININE 0.8 mg/dL (0.6-1.0)
[2020-10-26 07:37] LABS: POTASSIUM 2.8 mmol/L (3.5-5.1)
[2020-10-26 08:27] VITALS: BP 114/78
--- NOTE | 2020-10-26 11:05 | NUR ---
ASSUMED PT CARE THIS AM. PT IS ALERT & ORIENTED X2 EXCEPT TIME AND PLACE. INFORMED DR ABOUT CRITICAL K+ THIS AM WAS 2.8. GIVEN 20 MEQ POTASSIUM PO TID AND INFUSING NACL W/ KCL 20 1000ML @ 100ML PER DR ORDERED. PT IS ON TELE MONITOR ON. PT IS ON ROOM AIR AND ACCUCHECK ACHS. PT TOLERATED DIET AND MEDICATION WELL. NO C/O OF PAIN, NAUSEA AND VOMITING. PT ON THE BED SLEEPING, BED ON THE LOWEST POSITION, SIDE RAILS UP, CALL LIGHT WITHIN REACH. WILL CONTINUE TO MONITOR PT. FOLLOW POC.
[2020-10-26 20:05] VITALS: BP 127/81
--- NOTE | 2020-10-27 05:43 | NUR ---
Assumed pt care at 1900. A/OX3,forgetful/confused on time, needs reminders to call for help before getting out of bed. VSS. Denies pain on assessment. Up with SBA.Fall precauitons in place. Potassium being replaced,will monitor labs.
[2020-10-27 07:34] VITALS: BP 114/78
[2020-10-27 08:02] LABS: CALCIUM 7.9 mg/dL (8.5-10.1); CREATININE 0.8 mg/dL (0.6-1.0); POTASSIUM 3.7 mmol/L (3.5-5.1)
--- NOTE | 2020-10-27 12:29 | NUR ---
ASSUMED PT CARE THIS AM. PT A&OX1 AND FOREGETFUL. PATIENT ABLE TO MAKE NEEDS KNOWN. PATIENT REMAINS CONTINENT, AMBULATORY WITH ASSIST TO THE BATHROOM. PATIENT DOES NOT WANT BED ALARM ON, BUT EXPLAINED REASON FOR THIS TO PATIENT. PATIENT IS ON ROOM AIR. IV PATENT, FLUIDS INFUSING. PATIENT DENIES PAIN, NUMBNESS, OR TINGLING. FALL PRECAUTIONS ARE IN PLACE, CALL LIGHT WITHIN REACH.
--- NOTE | 2020-10-27 15:20 | NUR ---
CARE TEAM INDICATED THAT PT MAY BE MEDICALLY STABLE TO DC THIS DAY. PT AND OT ASSESSED AND INDICATED THAT PT IS SAFE TO DC HOME TO [facility] ONCE MEDICALLY STABLE. CM HAD SPOKEN WITH PT'S BROTHER/DPOA WHO INDICATED THAT PT SEES MEDICATION RECONCILIATION TECHNICIAN BALBINA MORGAN AT THE [place] [facility]. HE INDICATED THAT HE ASSISTS IN PROVIDING PT WITH TRANSPORT TO APPOINTMENTS. PHYSICIAN REVIEWING CHART TO DETERMINE IF PT IS DC READY THIS DAY. CM TO SEND REFERRAL FOR HH PT AND BROTHER WERE AGREEABLE.
[2020-10-27] MEDS ORDERED: KEFLEX250 MG PO (15:48)
[2020-10-27 16:04] VITALS: BP 114/78
[2020-10-27 16:32] VITALS: BP 114/78; BP 122/71
== END 2020-10-27 18:21 | disposition home health service (06) | DRG 682 ==
LOC: ER 16:48 → 4W 10-24 02:00 → EROBS 10-24 02:00 → 4W 10-24 02:51
PROVIDERS: Emergency Medicine; Family Medicine; Nurse Practitioner Family; Student in an Organized Health Care Education/Training Program; ADMIT Hospitalist; ATTEND Hospitalist
DX: N17.0 Acute kidney failure with tubular necrosis (principal); R65.11 Systemic inflammatory response syndrome (SIRS) of non-infectious origin with acute organ dysfunction; N39.0 Urinary tract infection, site not specified; I95.1 Orthostatic hypotension; E86.0 Dehydration; G30.9 Alzheimer's disease, unspecified; F02.80 Dementia in other diseases classified elsewhere, unspecified severity, without behavioral disturbance, psychotic disturbance, mood disturbance, and anxiety; G40.909 Epilepsy, unspecified, not intractable, without status epilepticus; F10.10 Alcohol abuse, uncomplicated; E87.6 Hypokalemia; I10 Essential (primary) hypertension; F31.9 Bipolar disorder, unspecified; Z96.662 Presence of left artificial ankle joint; Z87.891 Personal history of nicotine dependence; Z79.899 Other long term (current) drug therapy
CPT/HCPCS: 10045